=== PATIENT | female | born 1960 | race Caucasian/White ===

== ENCOUNTER 2016-09-13 14:34 | Emergency (ER) | payer BC ==
[~2016-09-13] VITALS: Ht 170.2 cm; Wt 66.3 kg
[2016-09-13 14:44] VITALS: Ht 170.2 cm; Wt 66.3 kg
[2016-09-13] MEDS ORDERED: LORA5TAB3 PO (14:52)
[2016-09-13] MEDS ORDERED: MULT-506 PO (14:52)
[2016-09-13] MEDS ORDERED: AMOX875T PO (15:22)
--- NOTE | 2016-09-13 15:23 | EMERGENCY ROOM VISIT NOTE ---
ED Visit Note First contact with patient: 14:48 CHIEF COMPLAINT: Sore throat HISTORY OF PRESENT ILLNESS: This 56-year-old female patient presents to the emergency department ambulatory complaining of a sore throat. The patient reports that she developed pain in her bladder yesterday. She reports that her looked in her throat and there were white spots in the back of the throat. She states the pain is worse with swallowing and rates her discomfort a 5/10. She states that her daughter was recently diagnosed with strep throat. The patient denies any headache, cough, neck pain/stiffness, fever, earaches, difficulty breathing or swallowing. REVIEW OF SYSTEMS: A review of systems was performed with positives and pertinent negatives listed in the history of present illness. All other systems were reviewed and are negative. ALLERGIES: No known drug allergies MEDICATIONS: No chronic medications PMH: No significant past medical history. SOCIAL HISTORY: The patient lives locally with her . She does not smoke. She admits to occasional alcohol use. PHYSICAL EXAM: VITALS: Vitals are noted on the nurse's note and reviewed by myself. Vital signs stable. GENERAL: This is a 56-year-old female, in no acute distress, nondiaphoretic, well-developed well-nourished. EYES: PERRLA, EOMs intact. No conjunctival injection. EARS: TMs clear bilaterally, no erythema or effusion. MOUTH: Mucous murmurs moist. Mild erythema of the posterior oropharynx with exudates present. Tonsils are slightly enlarged. Uvula midline. Airway patent. NECK: Supple, no lymphadenopathy. HEART: Regular rate and rhythm, no murmurs gallops or rubs. LUNGS: Clear to auscultation throughout all lung jordan. EMERGENCY DEPARTMENT COURSE: The patient was evaluated as above. Rapid strep was obtained and was negative. Culture pending. The patient does report that her daughter was recently diagnosed with strep in her physical exam is consistent with strep throat. The patient will be placed on Augmentin empirically. Conservative measures were discussed. The patient verbalized understanding and was discharged home in good condition. DIAGNOSIS: Acute pharyngitis Current/Historical Medications Scheduled Amoxicillin & Pot Clavulanate (Augmentin 875-125 mg), 1 TAB PO BID Loratadine & Pseudoephedrine (Claritin-D 12 Hour), 1 TAB PO BID Multivitamin (Multivitamin), 1 TAB PO DAILY Allergies Coded Allergies: No Known Allergies (Unverified , 09/13/16) Vital Signs Date Time Temp Pulse Resp B/P Pulse Ox O2 Delivery O2 Flow Rate FiO2 09/13/16 15:24 37.2 68 16 151/92 98 09/13/16 14:47 98 Room Air 09/13/16 14:44 37.2 68 16 151/92 98 Room Air Departure Information Impression Primary Impression: Acute pharyngitis Dispostion Home / Self-Care Condition GOOD Prescriptions Amoxicillin & Pot Clavulanate (Augmentin 875-125 mg) 1 Tab Tab 1 TAB PO BID for 7 Days, #14 TAB Prov: Argentina Milligan .HORACE 09/13/16 Referrals Donn Oswald M.D.([facility]) (PCP) Patient Instructions My [facility] Additional Instructions You were seen in the emergency department for your sore throat. The results of your rapid strep screen were found to be negative You will be contacted in 48- 72 hrs with the results of your pending strep culture. You were prescribed Augmentin to be taken twice daily as prescribed. This is an antibiotic. All antibiotics have the potential to cause diarrhea. Stop this medication and contact a medical provider if you were to develop any significant adverse side effects including: wheezing, shortness of breath, passing out, vomiting, or a diffuse rash. Always take antibiotics as directed and COMPLETE the ENTIRE course regardless of the improvement of your symptoms. For pain and fever control, you can use the following [id number] medicines (if >12 yo): - Regular strength (325mg/tab) Tylenol (acetaminophen) 2 tabs every 4-6 hours as needed. Do not exceed 12 tablets in a 24 hour period. Avoid taking more than 4 grams (4000 mg) of Tylenol per day. This includes any other sources of acetaminophen you may take on a regular basis. - Regular strength (200 mg/tab) Advil (ibuprofen) 1-2 tabs every 4-6 hours as needed. Do not exceed a dose of 3200 mg per day. - For best results, alternate dosing of Tylenol and Advil. In addition to your prescribed medications, you can also use the following home remedies: - Warm salt-water gargles 3 times per day can soothe your throat and help to fight infection. - Warm tea with honey can soothe your throat. Return to the emergency department if your symptoms persist or worsen over the next 2-3 days despite treatment course outlined above. Return to the emergency department if you develop the following symptoms of: inability to swallow solids , liquids, or drool; excessive wheezing or inability to catch your breath; or intractable fever or pain. Follow up with your primary care provider in 2-3 days from today's emergency department visit. Problem Qualifiers Primary Impression: Acute pharyngitis
[2016-09-13 15:24] VITALS: BP 151/92; PULSE 68; TEMP 37.2; O2SAT 98
== END 2016-09-13 15:25 | disposition home or self-care (01) ==
LOC: C.EDB 14:36 → C.EDD 15:25
DX: J02.9 Acute pharyngitis, unspecified (principal)

== ENCOUNTER → 2016-12-26 | Outpatient (CLI) | payer BC ==
[~2016-12-26] MED LIST: LORA5TAB3 PO; MULT-506 PO
--- NOTE | 2016-12-27 13:28 | MAMMOGRAPHY REPORT ---
BILATERAL DIGITAL SCREENING MAMMOGRAM TOMOSYNTHESIS WITH CAD: 12/26/2016 CLINICAL HISTORY: Routine screening. Patient has no complaints. TECHNIQUE: Breast tomosynthesis in addition to standard 2D mammography was performed. Current study was also evaluated with a Computer Aided Detection (CAD) system. COMPARISON: Comparison is made to exams dated: 01/07/2016 mammogram, 12/24/2015 mammogram, 07/15/2014 ma mmogram, 10/24/2012 mammogram, 04/28/2011 mammogram, and 04/27/2010 mammogram - [facility]. BREAST COMPOSITION: The tissue of both breasts is heterogeneously dense, which may obscure small mas ses. FINDINGS: There is a cluster of microcalcifications in the 9:00 posterior right breast, that is incr easingly prominent compared to prior exams. Additional spot magnification views are recommended. No other new suspicious mass, architectural distortion or cluster of microcalcifications is seen. IMPRESSION: ACR BI-RADS CATEGORY 0: INCOMPLETE EVALUATION: NEED ADDITIONAL IMAGING EVALUATION The cluster of microcalcifications in the 9:00 right breast needs additional evaluation. The patient will be called to schedule an appointment. Approximately 10% of breast cancers are not detected with mammography. A negative mammographic report should not delay biopsy if a clinically suggestive mass is present. Lorraine Velazquez M.D. ay/:12/26/2016 16:46:41 [employer]: Summer GOMEZ(R)(M), [facility] letter sent: Addl Imaging 0 BI-RADS Code: ACR BI-RADS Category 0: Incomplete Evaluation: Need Additional Imaging Evaluation
== END | disposition home or self-care (01) ==
LOC: C.MAMM 07:42
PROVIDERS: ATTEND Family Medicine
DX: Z12.31 Encounter for screening mammogram for malignant neoplasm of breast (principal); R92.0 Mammographic microcalcification found on diagnostic imaging of breast

== ENCOUNTER → 2017-01-27 | Outpatient (CLI) | payer BC ==
--- NOTE | 2017-01-27 12:57 | MAMMOGRAPHY REPORT ---
UNILATERAL RIGHT DIGITAL DIAGNOSTIC MAMMOGRAM: 01/27/2017 CLINICAL HISTORY: Callback from screening mammogram for right breast calcifications. The patient rep orts a family history of breast cancer with her mother diagnosed in her 40s. TECHNIQUE: Spot magnification right CC and ML views were obtained. COMPARISON: Comparison is made to exams dated: 12/26/2016 mammogram, 01/07/2016 ultrasound, 01/07/2016 ma mmogram, 12/24/2015 mammogram, 07/15/2014 mammogram, and 10/24/2012 mammogram - [facility]ter. BREAST COMPOSITION: The tissue of the right breast is heterogeneously dense, which may obscure small masses. FINDINGS: Spot magnification views of the right breast demonstrate faint grouped calcifications in t he right 9:00 posterior breast, with total extent of the calcifications measuring approximately 15 x 9 mm. The overall size of the group does not appear significantly changed compared to the 2015 exam although there may be a few new faint calcifications in the group. Although calcifications have been present in this region dating back to the 2009 exam, stability is difficult to determine given diffe rences in mammographic technique between the current and prior exams (currently using [employer] equipme nt, previously using [employer] equipment on remote prior exams). Given the strong family history of breast cancer and increased prominence, stereotactic biopsy is recommended. A few other scattered calcifica tions in the right breast on the spot magnification views are stable dating back to the 2009 exam. IMPRESSION: ACR BI-RADS CATEGORY 4: SUSPICIOUS Grouped calcifications in the right 9:00 breast are indeterminant, and stereotactic biopsy is recomme nded for further evaluation. A phone call was made to the physician's office to confirm faxed results were received. The patient has been verbally notified of the results. She tentatively scheduled the biopsy before leaving [facility]. Approximately 10% of breast cancers are not detected with mammography. A negative mammographic report should not delay biopsy if a clinically suggestive mass is present. Anais Guerrero M.D. ah/:01/27/2017 09:38:28 Risk Modeler: Sammie BYRNES)(Tucker), [facility] letter sent: Abnormal 4/5 BI-RADS Code: ACR BI-RADS Category 4: Suspicious
== END | disposition home or self-care (01) ==
LOC: C.MAMM 08:04
PROVIDERS: ATTEND Family Medicine
DX: R92.1 Mammographic calcification found on diagnostic imaging of breast (principal)

== ENCOUNTER → 2017-02-01 | Outpatient (CLI) | payer BC ==
--- NOTE | 2017-02-01 14:23 | Discharge Instructions ---
Discharge Instructions Procedure Procedure Date: Feb 01, 2017. Reason for visit: Rt Calcs. Discharge Discharge Date: Feb 01, 2017. Discharge Diagnosis: status post breast biopsy Instructions Activity Recommendations: Additional Limitations (see below) Return to School/Work: no limitations Recommended Home Diet: No Limitations Provider Instructions: ACTIVITY RECOMMENDATIONS: * No lifting, pushing, pulling or exercising the affected side for three days. RETURN TO SCHOOL/WORK: * You may return to work/school after the procedure, but do not perform any strenuous activities for 24 to 48 hours. MEDICATIONS: * Tylenol (two 325 mg) every four to six hours if needed for mild pain (if not allergic to Tylenol). DIET: * Resume previous diet. SPECIAL CARE INSTRUCTIONS: * Keep biopsy site dry for 24 hours. May shower after 24 hours, but do not soak (bathe) incision. * May remove Tegaderm (plastic patch) tomorrow AFTER showering. * Leave the steri-strips on for one week. Allow the steri-strips to fall off by themselves. If not off after one week, you may remove them. You may place a Bandaid crosswise over the strips, if desired. * Apply ice 10 minutes on and 10 minutes off as needed. * Wear a bra at bedtime to sleep more comfortably for 2-3 days. * Your referring physician should have the results after approximately 5 to 7 business days. * Call for unusual bleeding, fever, drainage, etc or if you have any questions call during normal business hours or after hours call Dr Guerrero, [phone]. FOLLOW UP VISIT: Follow-up with Referring Physician as scheduled. Allergies Coded Allergies: No Known Allergies (Unverified , 09/13/16) Ozzie Lester Recommendations: Call your doctor if: * Temperature above 101 degrees * Pain not relieved by pain medicine ordered * There is increased drainage or redness from any incision * You have any unanswered questions or concerns. Your Doctors Instructions noted above were prepared by provider Anais Guerrero. Patient Signature Section: Patient Instructions Signature Page Lor Sweeney Patient (or Guardian) Signature/Date: I have read and understand the instructions given to me by my caregivers. Caregiver/RN/Doctor Signature/Date: The above-named patient and/or guardian has received patient instructions on this date. + Original Patient Signature Page (only) stays with chart. Please make copy for patient.
--- NOTE | 2017-02-02 12:48 | MAMMOGRAPHY REPORT ---
STEREOTACTIC GUIDED BIOPSY RIGHT BREAST: 02/01/2017 CLINICAL HISTORY: Right 9:00 breast calcifications. PATIENT CONSENT: The procedure, risks, benefits, and alternatives of stereotactic biopsy with clip pl acement were discussed with the patient, and verbal and written consent was obtained. A timeout was performed immediately prior to the procedure. PROCEDURE DESCRIPTION: With stereotactic guidance, aseptic technique, and lidocaine as a local anesth etic (1% lidocaine to anesthetize the skin and 1% lidocaine with epinephrine to anesthetize the deepe r tissues), the calcifications of concern in the right 9:00 breast were sampled multiple times with a 9-gauge vacuum-assisted biopsy needle ([place]). The path of approach was lateral. The specime n radiograph demonstrates calcifications to be present in the samples. A metallic marker clip was pl aced at the biopsy site. This was confirmed on postprocedure mammograms. Direct pressure was applie d at the biopsy site and hemostasis was readily achieved. The patient tolerated the procedure withou t complication. She was given wound care instructions. COMPARISON: Comparison is made to exams dated: 01/27/2017 mammogram, 12/26/2016 mammogram, 01/07/2016 ul trasound, 01/07/2016 mammogram, 12/24/2015 mammogram, and 07/15/2014 mammogram - [facility]ter. IMPRESSION: STEREOTACTIC GUIDED BIOPSY Stereotactic biopsy of indeterminate calcifications in the right 9:00 breast, with clip placement. T he patient will receive pathology results from her referring provider. Anais Guerrero M.D. ah/:02/01/2017 14:24:01 Assistant Merchandise Manager: Bethanie Corona, [facility]
--- NOTE | 2017-02-02 12:48 | MAMMOGRAPHY REPORT ---
UNILATERAL RIGHT DIGITAL DIAGNOSTIC MAMMOGRAM: 02/01/2017 CLINICAL HISTORY: Status post right breast stereotactic biopsy. TECHNIQUE: Right CC and LM views were obtained. COMPARISON: Comparison is made to exams dated: 01/27/2017 mammogram, 12/26/2016 mammogram, 01/07/2016 ma mmogram, 12/24/2015 mammogram, 07/15/2014 mammogram, and 11/09/2012 mammogram - [facility] nter. BREAST COMPOSITION: The tissue of the right breast is heterogeneously dense, which may obscure small masses. FINDINGS: A preprocedural right LM view was obtained for biopsy planning purposes. Postprocedural r ight CC and LM views were obtained, which shows a new biopsy marker clip at the site of the biopsied calcifications in the right lateral breast at approximately 9:00. No significant postbiopsy hematoma is seen. IMPRESSION: POST PROCEDURE IMAGING FOR MARKER PLACEMENT New biopsy marker clip status post right breast stereotactic biopsy. Pathology results are pending. Approximately 10% of breast cancers are not detected with mammography. A negative mammographic report should not delay biopsy if a clinically suggestive mass is present. Anais Guerrero M.D. /:02/01/2017 14:36:26 Tie Tape Machine Operator: Bethanie Corona [facility] BI-RADS Code: Post Procedure Imaging For Marker Placement
== END | disposition home or self-care (01) ==
LOC: C.MAMM 13:29
PROVIDERS: ATTEND Family Medicine
DX: R92.0 Mammographic microcalcification found on diagnostic imaging of breast (principal)

== ENCOUNTER → 2017-06-16 | Outpatient (CLI) | payer BC | END | disposition home or self-care (01) | LOC: C.PAPS 11:20 | PROVIDERS: ATTEND Obstetrics & Gynecology | DX: Z01.411 Encounter for gynecological examination (general) (routine) with abnormal findings (principal); R87.610 Atypical squamous cells of undetermined significance on cytologic smear of cervix (ASC-US) ==